=== PATIENT | male | born 1945 | race Caucasian/White ===

== ENCOUNTER → 2018-11-28 | Outpatient (REF) | payer MEDICARE, OTHER ==
[~2018-11-28] MED LIST: ALLE180T33 PO; ASPI81TA85 PO; FLOM0.4C39 PO; FLON1SPR; MACR100C43 PO; MECL-86 PO; PRESCAP PO; areds 2 PO
== END ==
LOC: M SMT 13:16 → MERGE 13:16
PROVIDERS: ATTEND Urology
DX: C67.9 Malignant neoplasm of bladder, unspecified (principal)

== ENCOUNTER → 2019-03-02 | Outpatient (REF) | payer MEDICARE, OTHER | LOC: M SMT 17:03 | PROVIDERS: ATTEND Urology | DX: C67.9 Malignant neoplasm of bladder, unspecified (principal) ==

== ENCOUNTER 2019-03-17 08:34 | Day surgery (SDC) | payer MEDICARE, OTHER ==
[~2019-03-17] VITALS: Ht 180.3 cm; Wt 100.0 kg
[2019-03-17] MEDS ORDERED: NS 1,000 ML IV ONE (10:30)
[2019-03-17] MEDS ORDERED: PROPOFOL 200 MG/20 ML VIAL As Ordered ONE (11:03)
[2019-03-17] MEDS ORDERED: LIDOCAINE 2% INJ 100 MG/5 ML SDV (FOR ANES.) As Ordered ONE (11:03)
--- NOTE | 2019-03-17 11:10 | ROOR ---
Patient Name: Casey Evangelista Procedure Date: 03/17/2019 10:52 AM Date of : 1945 Age: 73 Room: [facility] Gender: Male Note Status: Finalized Procedure: Colonoscopy Indications: High risk colon cancer surveillance: Personal history of colonic polyps, Last colonoscopy: January 2014, Family history of colon cancer in a first-degree relative Providers: Dennys CUELLAR MD Referring MD: TANIKA BURDEN MD Requesting Provider: Medicines: Monitored Anesthesia Care Complications: No immediate complications. Procedure: Pre-Anesthesia Assessment: - The heart rate, respiratory rate, oxygen saturations, blood pressure, adequacy of pulmonary ventilation, and response to care were monitored throughout the procedure. The Colonoscope was introduced through the anus and advanced to the terminal ileum, with identification of the appendiceal orifice and IC valve. The colonoscopy was performed without difficulty. The patient tolerated the procedure well. The quality of the bowel preparation was good. Findings: The perianal and digital rectal examinations were normal. Multiple small-mouthed diverticula were found in the sigmoid colon. Internal hemorrhoids were found during retroflexion. The hemorrhoids were moderate. The exam was otherwise without abnormality on direct and retroflexion views. Impression: - Diverticulosis in the sigmoid colon. - Internal hemorrhoids. - The colon examination was otherwise normal on direct and retroflexion views. - No specimens collected. Recommendation: - Repeat colonoscopy in 5 years for screening purposes. (First degree family history) Dennys Cuellar MD Dennys CUELLAR MD 03/17/2019 11:10:20 AM Electronically signed by Dennys CUELLAR MD Number of Addenda: 0 Note Initiated On: 03/17/2019 10:52 AM Estimated Blood Loss: Estimated blood loss: none.
[2019-03-17 11:31] VITALS: BP 14/80
== END 2019-03-17 11:33 | disposition home or self-care (01) ==
LOC: M OPP 08:34
PROVIDERS: ATTEND Internal Medicine Gastroenterology
DX: Z86.010 Personal history of colon polyps (principal); Z80.0 Family history of malignant neoplasm of digestive organs; K57.30 Diverticulosis of large intestine without perforation or abscess without bleeding; K64.8 Other hemorrhoids; I10 Essential (primary) hypertension; Z80.52 Family history of malignant neoplasm of bladder; Z87.891 Personal history of nicotine dependence; Z79.899 Other long term (current) drug therapy

== ENCOUNTER → 2019-06-24 | Outpatient (REF) | payer MEDICARE, OTHER | LOC: M SMT 16:51 | PROVIDERS: ATTEND Urology | DX: C67.9 Malignant neoplasm of bladder, unspecified (principal) ==

== ENCOUNTER → 2019-10-05 | Outpatient (REF) | payer MEDICARE, OTHER | LOC: M SMT 16:52 | PROVIDERS: ATTEND Urology | DX: C67.9 Malignant neoplasm of bladder, unspecified (principal) ==

== ENCOUNTER → 2019-10-20 | Outpatient (CLI) | payer MEDICARE, OTHER | LOC: M WUC 12:00 | PROVIDERS: ATTEND Urology | DX: R97.20 Elevated prostate specific antigen [PSA] (principal) ==

== ENCOUNTER → 2020-01-04 | Outpatient (REF) | payer MEDICARE, OTHER ==
[~2020-01-04] MED LIST changes: -ASPI81TA85 PO; +ASPI81TA86 PO
== END ==
LOC: M SMT 07:02
PROVIDERS: ATTEND Urology
DX: C67.9 Malignant neoplasm of bladder, unspecified (principal)
CPT/HCPCS: 52000; 88108; G0463

== ENCOUNTER → 2020-08-15 | Outpatient (REF) | payer MEDICARE, OTHER | LOC: M SMT 12:57 | PROVIDERS: ATTEND Urology | DX: C67.9 Malignant neoplasm of bladder, unspecified (principal) ==

== ENCOUNTER → 2020-09-13 | Outpatient (CLI) | payer MEDICARE, OTHER | LOC: M WUC 10:40 | PROVIDERS: ATTEND Urology | DX: Z87.898 Personal history of other specified conditions (principal); R97.20 Elevated prostate specific antigen [PSA] ==

== ENCOUNTER → 2021-03-20 | Outpatient (REF) | payer MEDICARE, OTHER | LOC: M SMT 13:22 | PROVIDERS: ATTEND Urology | DX: C67.9 Malignant neoplasm of bladder, unspecified (principal) ==

== ENCOUNTER → 2021-09-19 | Outpatient (REF) | payer MEDICARE, OTHER | LOC: M SMT 18:50 | PROVIDERS: ATTEND Urology | DX: C67.9 Malignant neoplasm of bladder, unspecified (principal) ==

== ENCOUNTER → 2021-10-04 | Outpatient (REF) | payer MEDICARE, OTHER | LOC: M LABSMT 08:11 | PROVIDERS: ATTEND Urology | DX: Z12.5 Encounter for screening for malignant neoplasm of prostate (principal) ==

== ENCOUNTER → 2022-03-26 | Outpatient (REF) | payer MEDICARE, OTHER | LOC: M SMT 12:56 | PROVIDERS: ATTEND Urology | DX: C67.9 Malignant neoplasm of bladder, unspecified (principal) ==

== ENCOUNTER → 2022-10-26 | Outpatient (REF) | payer MEDICARE, OTHER | LOC: M SMT 17:38 | PROVIDERS: ATTEND Urology | DX: C67.9 Malignant neoplasm of bladder, unspecified (principal) ==

== ENCOUNTER → 2022-11-15 | Outpatient (REF) | payer MEDICARE, OTHER | LOC: M LABSMT 07:28 | PROVIDERS: ATTEND Urology | DX: Z12.5 Encounter for screening for malignant neoplasm of prostate (principal) ==

== ENCOUNTER → 2023-11-04 | Outpatient (REF) | payer MEDICARE, OTHER | LOC: M SMT 17:01 | PROVIDERS: ATTEND Urology | DX: C67.9 Malignant neoplasm of bladder, unspecified (principal) ==